=== PATIENT | female | born 1970 | race African-American/Black ===

== ENCOUNTER 2016-10-12 12:51 | Day surgery (SDC) | payer OTHER ==
[~2016-10-12] VITALS: Ht 170.2 cm; Wt 96.1 kg
[~2016-10-12 12:51] MED LIST: AMBIEN; ATIVAN; PROTONIX; WELLBUTRIN; [UNRECOGNIZED DRUG - OTHER]
[2016-10-12] MEDS ORDERED: PREVACID (13:39)
[2016-10-12 13:41] VITALS: Ht 170.2 cm; Wt 96.1 kg
[2016-10-12 14:47] VITALS: BP 122/85; PULSE 78; RESP 18
[2016-10-12] MEDS ORDERED: PROPOFOL 40 ML ONE (15:07)
[2016-10-12] MEDS ORDERED: MIDAZOLAM 1 MG/ML 2 ML INJ ONE (15:07)
[2016-10-12 16:05] VITALS: BP 129/86; PULSE 67; RESP 18
--- NOTE | 2016-10-13 04:55 | GILP ---
DATE OF PROCEDURE: 10/12/2016 PROCEDURE: Colonoscopy to cecum. BRIEF HISTORY AND INDICATIONS: The patient is being evaluated for change in bowel habits with incre asing constipation. PREMEDICATION: Monitored anesthesia care by anesthesiologist. SURGEON: Dilcia Reynoso MD INSTRUMENT USED: Olympus colonoscope. PREPARATION: Adequate. TECHNIQUE: After informed consent, with the patient/relatives understanding the procedure, its indic ations potential risks and complications, including but not limited to: allergic reaction, bleeding, perforation, infection, missed lesions and after all pertinent questions were answered to the patie nt's satisfaction, the patient/relatives signed the witnessed informed consent. Following this, premedication was administered slowly IV push by under careful cardiovascular and re spiratory monitoring with pulse oximetry, automatic blood pressure and groundwater monitoring technician. Once the sedativ e effect was achieved, the patient was placed in the left lateral decubitus position, digital rectal examination was performed. The colonoscope was then introduced and advanced under visual control th roughout all segments of the colon including: the rectum, sigmoid, descending colon, splenic flexure , transverse colon, hepatic flexure, ascending colon and finally reaching the cecum which was clearl y identified by transillumination, finger indentation and the ileocecal valve. Careful examination o f the mucosa of the lower gastrointestinal tract both on insertion as well as withdrawal of the inst rument disclosed the following findings: Rectal Examination: No evidence of perirectal disease, no masses. Colonic Mucosa: The colonic mucosa was carefully examined. Unfortunately, the preparation is poor. Extensive lavage was required, but even with this, at least 30 to 40% of the mucosa could not be w ell visualized. Even though we attempted extensive lavage, the residual material repeatedly clogged the instrument limiting our ability to empty the material in the colon. The mucosa examined appear s unremarkable. The instrument was then withdrawn, the patient tolerated the procedure well and was transferred out of the Endoscopy Suite awake and in good condition to continue recovery under observation. IMPRESSION: The ileocecal valve was clearly identified, and the instrument was withdrawn. Moderate sized internal hemorrhoids are noted on withdrawal of the instrument. IMPRESSION: 1. Poor preparation precludes optimal examination. No gross lesions were identified, but 30 to 40% of the mucosa could not be well visualized. 2. Moderate size internal hemorrhoids. PLAN: High fiber diet, constipation management, and revaluate in 3 years. Dictated By: DILCIA REYNOSO MS/NTS Conf#: [id number] DID#: [id number]
== END 2016-10-12 16:27 | disposition home or self-care (01) ==
LOC: GIL 12:51
PROVIDERS: ATTEND Internal Medicine Gastroenterology
DX: R19.4 Change in bowel habit (principal); K64.8 Other hemorrhoids
CPT/HCPCS: 45378; 84703; J2250; Z7610